=== PATIENT | female | born 1975 | race Caucasian/White ===

== ENCOUNTER 2024-01-06 06:05 | Day surgery (SDC) | payer OTHER ==
[~2024-01-06] VITALS: Ht 165.1 cm; Wt 77.1 kg
[2024-01-06 06:56] LABS: HCG,QUAL RESULT NEGATIVE (NEGATIVE)
[2024-01-06] MEDS ORDERED: MEPERIDINE 100 MG INJ. 100 MG/ML VIAL ONE (07:32)
[2024-01-06] MEDS ORDERED: MIDAZOLAM HCL 5 MG/5 ML VIAL ONE (07:32)
[2024-01-06 07:35] VITALS: O2SAT 100
[2024-01-06 13:35] VITALS: BP_SYST 94; PULSE 60; RESP 17
== END 2024-01-06 09:12 | disposition home or self-care (01) ==
LOC: SGI 06:05 → SMU 06:10 → SGI 09:12
PROVIDERS: ATTEND Internal Medicine Gastroenterology
DX: Z12.11 Encounter for screening for malignant neoplasm of colon (principal); D12.8 Benign neoplasm of rectum; K29.50 Unspecified chronic gastritis without bleeding; K64.8 Other hemorrhoids; R10.9 Unspecified abdominal pain; Z79.899 Other long term (current) drug therapy; Z86.010 Personal history of colon polyps
CPT/HCPCS: 45385; 43239; 87081; 84703; 36415; 88305; 88312; 88313; 99153; 99152; G0378; J2250; J2175